=== PATIENT | male | born 1980 | race Caucasian/White ===

== ENCOUNTER 2016-11-28 08:44 | Day surgery (SDC) | payer OTHER ==
[~2016-11-28 08:44] MED LIST: ADVIL200 MG PO; DICLOFENAC SODI75 M2 PO; IBUPROFEN800 MG PO; LORTAB 500 MG-11 TAB PO; PREVACID SOLUTA15 MG PO; SIMVASTATIN20 MG PO; TRICOR 145 MG145 MG PO
--- NOTE | 2016-11-28 11:59 | RADIOLOGY REPORT PS360 ---
CARDIAC CATHETERIZATION DATE OF CATHETERIZATION:11/28/2016 9:04 AM PROCEDURES: 1. Left heart catheterization 2. Left ventriculogram 3. Selective coronary angiogram 4. Drug-eluting stent deployment in the large posterior descending artery off the dominant right coronary artery INDICATION FOR TEST: 1. Unstable angina 2. Coronary artery disease Informed consent was obtained prior to the procedure. COMPLICATIONS: None Clinical history: 36-year-old gentleman presented to the hospital with heavy chest pain relieved by nitroglycerin. She had 2 normal EKGs with negative troponins however continued to have recurrence N chest pain coming and going each time being relieved by nitroglycerin. This sequence was repeated in the emergency department and eventually prior to being able to perform a stress test patient continue to have chest pain the last time more intense also relieved by nitroglycerin. Because of the study during chest pain in the emergency department he was brought to the [facility] for angiography. Patient had risk factors for coronary artery disease including a very impressive strong family history with his father at a young age ESTIMATED BLOOD LOSS: Less than 10 ml. TECHNIQUE: One percent lidocaine was used to anesthetize the right anterior aspect of the right wrist. The right radial artery was accessed via the Seldinger technique and a 6 [place] hydrophilic sheath was placed in the right radial artery. An arterial cocktail of heparin 5000 units along with verapamil and nitroglycerin was administered intra-arterially. Over a J-wire a Awilda catheter was used to perform left heart catheterization left ventriculogram and selective coronary angiogram. A T8 catheter was then placed into the left coronary artery and angiography performed. After the last diagnostic and gram was performed an additional 6000 units of intravenous heparin was administered along with 60 mg of oral Effient. An Ikari right catheter was placed in the right coronary artery and a BMW wire was placed distally. A 2.75 x 12 mm resolute stent was deployed at 16 cristino creating an intraluminal diameter of 3.15 mm. Excellent angiographic results were obtained with TREVOR-3 flow being present before and after the procedure. The end of the procedure the apparatus was removed the sheath was removed and good hemostasis was achieved using TR band in patient transferred to the postop holding area in stable condition. ACT was measured at 275 seconds ANGIOGRAPHIC RESULTS: 1. The left main artery normal 2. The left anterior descending artery mild proximal luminal irregularities with a mild mid myocardial bridge creating a systolic compression of 30% at rest 3. The circumflex artery nondominant with mild luminal irregularities 4. The right coronary artery is a very large dominant vessel with mild luminal irregularities in the proximal mid segment. The posterior descending artery has a very focal stenosis approximately 70% with a ruptured ulcerated cap with very clear identifiable contrast staining inside the ulcerated cap. 5. The LEWIS ventriculogram reveals 65% 6. The left ventricular end-diastolic pressure 10 mmHg IMPRESSION: 1. 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 Focal plaque in the large posterior descending artery off the dominant right coronary artery creating a 60-70% stenosis with an ulcerated plaque with thrombus and side as evidenced by the contrast staining/persistence within the catheter 3. Successful stenting of the acute coronary syndrome ruptured plaque used to 0% with 1 drug-eluting stent 4. Normal ejection fraction 5. Left ventricular end-diastolic pressure PLAN: 1. Effient and aspirin one year 2. LDL less than 70 3. Risk factor modification
[2016-11-28 14:37] VITALS: BP 121/77
[2016-11-28] MEDS ORDERED: EFFIENT10 M2 PO (16:06)
== END 2016-11-28 14:30 | disposition home or self-care (01) ==
LOC: CATHLAB 08:44
PROVIDERS: Internal Medicine
PROC: B2111ZZ Fluoroscopy of Multiple Coronary Arteries using Low Osmolar Contrast (ICD-10-PCS; 2016-11-28)
PROC: B2151ZZ Fluoroscopy of Left Heart using Low Osmolar Contrast (ICD-10-PCS; 2016-11-28)
PROC: 027034Z Dilation of Coronary Artery, One Artery with Drug-eluting Intraluminal Device, Percutaneous Approach (ICD-10-PCS; 2016-11-28)
PROC: 4A023N7 Measurement of Cardiac Sampling and Pressure, Left Heart, Percutaneous Approach (ICD-10-PCS; principal; 2016-11-28 11:00)
DX: I25.110 Atherosclerotic heart disease of native coronary artery with unstable angina pectoris (principal); I10 Essential (primary) hypertension; Z72.0 Tobacco use; Z82.49 Family history of ischemic heart disease and other diseases of the circulatory system
CPT/HCPCS: C1725; C1769; C1876; J1644; Q9967